=== PATIENT | male | born 1965 | race Caucasian/White ===

== ENCOUNTER 2017-10-28 12:03 | Emergency (ER) | payer BC, SELFPAY ==
[2017-10-28 12:06] VITALS: BP 117/72; PULSE 75; RESP 18; TEMP 36.4; O2SAT 98; BMI 31.4
[2017-10-28] MEDS: 0.9% Normal Saline 1,000 ML 1000 ML IV (12:55)
[2017-10-28 13:07] LABS: Absolute Lymphocyte Count 1.35 X10^3/ul (0.83-4.51); Absolute Neutrophil Count 3.4 X10^3/uL (2.0-7.7); Basophil# 0.03 X10^3/uL; Basophil% 0.6 % (0-1); Eosinophil# 0.19 X10^3/uL; Eosinophils% 3.5 % (0-5); Hematocrit 39.2 % (40-54); Hemoglobin 13.4 g/dl (13.0-16.5); Lymphocyte # 1.35 X10^3/ul (4.0); Lymphocyte % 25.2 % (19-41); Mean Corp Hgb Conc 34.2 g/gl (32-36); Mean Corpuscular Hgb 28.8 pg (27.0-32.0); Mean Corpuscular Volume 84.1 fL (80-94); Monocyte# 0.42 X10^3/uL; Monocyte% 7.8 % (0-10); Neutrophil # 3.36 X10^3/uL (2.7-7.7); Neutrophil % 62.7 % (47-70); Platelet Count 130 K/mm3 (150-450); RBC Distribution Width CV 14.7 % (11.6-14.6); RBC Distribution Width SD 44.1 fl (35.1-43.9); Red Blood Count 4.66 M/mm3 (4.6-6.2); White Blood Count 5.4 K/mm3 (4.4-11.0)
[2017-10-28 13:10] LABS: POSITIVE COUNT NO; POSITIVE DIFFERENTIAL NO; POSITIVE MORPHOLOGY NO
[2017-10-28 13:18] LABS: Anion Gap 10 (5-15); BUN 12 mg/dL (7-18); BUN/Creat Ratio 12.9 RATIO (10-20); Calcium,Total 8.2 mg/dL (8.5-10.1); Chloride 105 mmol/L (98-107); Creatinine, Serum 0.93 mg/dL (0.70-1.30); EST Glomerular Filtration Rate 89 mL/min (>60); Est Glom Filt Rate - Afr Amer 108 mL/min (>60); Estimated Creatinine Clearance 96.71 ml/min; Glucose 145 mg/dL (74-106); Potassium 4.1 mmol/L (3.5-5.1); Sodium Level 137 mmol/L (136-145)
--- NOTE | 2017-10-28 16:18 | ED.VISSUMM ---
- ER Visit Summary Date of Service: 10/28/17 Chief Complaint: [Generalized weakness and diarrhea] History of Present Illness: The patient is a 52 M [resents to the emergency department with complaint of not feeling well for several days. Patient started 3 days ago with vomiting and diarrhea. Patient was having watery stools about every 2 hours. Patient states he took Imodium and really has not had any water stools today. Patient states that he feels like he might pass out and feels lightheaded at times. Patient believes he is dehydrated. Patient had fever 3 days ago up to 100.9. Patient states also that he had been on 2 antibiotics in the last 3 months for upper respiratory symptoms initially patient was on Augmentin followed by a Z-Emmett recently. Patient is a diabetic and has a history of hypertension and coronary artery disease.] Patient's had vomiting and diarrhea about 2 weeks ago. Physical Examination: [HEENT-PERRLA, EOMI. Cranial nerves II through XII grossly intact. TMs clear. Mucous membranes moist. No adenopathy. Cardiovascular-regular rate and rhythm without murmur or ectopy Lungs-clear to auscultation, chest wall stable without crepitus or subcu emphysema Abdomen-hyperactive bowel sounds, mild diffuse tenderness. There is no rebound, rigidity, or perineal signs. Extremities-intact ?4, normal range of motion, normal pulses, atraumatic] Test Results: [CBC with differential obtained showed a normal white blood cell count. Chemistries were unremarkable. C. difficile was negative. Enteric pathogens pending] Emergency Department Course and Treatment: [Patient received a liter normal same fluid bolus.] patient feels markedly improved after fluids. Treatment Plan: [Patient advised to continue with Imodium and push fluids.] Disposition: [Discharged to home in stable condition. Patient advised to return if fever, worsening abdominal pain, bloody stool, dehydration, or condition should worsen in any way.] Impression: [Gastroenteritis-suspect viral] This note was generated with [employer] dictation software. It may contain incorrect words, spelling, and punctuation that were not noted in review of the chart prior to signing ED Disposition - Plan for ED Patient: Chief Complaint: Diarrhea Referrals: Janice Rudd, BERTHA-C [Primary Care Provider] -
--- NOTE | 2017-10-28 16:21 | ED.DCSUM_ITS ---
- ER Visit Summary Date of Service: 10/28/17 Chief Complaint: [Generalized weakness and diarrhea] History of Present Illness: The patient is a 52 M [resents to the emergency department with complaint of not feeling well for several days. Patient started 3 days ago with vomiting and diarrhea. Patient was having watery stools about every 2 hours. Patient states he took Imodium and really has not had any water stools today. Patient states that he feels like he might pass out and feels lightheaded at times. Patient believes he is dehydrated. Patient had fever 3 days ago up to 100.9. Patient states also that he had been on 2 antibiotics in the last 3 months for upper respiratory symptoms initially patient was on Augmentin followed by a Z-Emmett recently. Patient is a diabetic and has a history of hypertension and coronary artery disease.] Patient's had vomiting and diarrhea about 2 weeks ago. Physical Examination: [HEENT-PERRLA, EOMI. Cranial nerves II through XII grossly intact. TMs clear. Mucous membranes moist. No adenopathy. Cardiovascular-regular rate and rhythm without murmur or ectopy Lungs-clear to auscultation, chest wall stable without crepitus or subcu emphysema Abdomen-hyperactive bowel sounds, mild diffuse tenderness. There is no rebound , rigidity, or perineal signs. Extremities-intact ?4, normal range of motion, normal pulses, atraumatic] Test Results: [CBC with differential obtained showed a normal white blood cell count. Chemistries were unremarkable. C. difficile was negative. Enteric pathogens pending] Emergency Department Course and Treatment: [Patient received a liter normal same fluid bolus.] patient feels markedly improved after fluids. Treatment Plan: [Patient advised to continue with Imodium and push fluids.] Disposition: [Discharged to home in stable condition. Patient advised to return if fever, worsening abdominal pain, bloody stool, dehydration, or condition should worsen in any way.] Impression: [Gastroenteritis-suspect viral] This note was generated with [employer] dictation software. It may contain incorrect words, spelling, and punctuation that were not noted in review of the chart prior to signing ED Disposition - Plan for ED Patient: Chief Complaint: Diarrhea Referrals: Janice Rudd, BERTHA-C [Primary Care Provider] -
--- NOTE | 2017-10-28 16:21 | ED.DEP ---
ED Disposition - Plan for ED Patient: Chief Complaint: Diarrhea Instructions: ED Gastroenteritis Report Pend Referrals: Janice Rudd, SHIPPING SPECIALIST-C [Primary Care Provider] - 3-5 Days
--- NOTE | 2017-10-28 16:22 | DCINST.ED_ITS ---
ED Disposition - Plan for ED Patient: Chief Complaint: Diarrhea Instructions: ED Gastroenteritis Report Pend Referrals: Janice Rudd, LICENSED EMBALMER SUPERVISOR-C [Primary Care Provider] - 3-5 Days
[2017-10-28 16:33] VITALS: BP 117/72; PULSE 74; RESP 16; O2SAT 97
== END 2017-10-28 16:42 | disposition home or self-care (01) ==
LOC: ED 13:37
PROVIDERS: Emergency Provider Emergency Medicine; Family Provider Nurse Practitioner Family; PCP Nurse Practitioner Family
DX: A08.4 Viral intestinal infection, unspecified (principal); I25.10 Atherosclerotic heart disease of native coronary artery without angina pectoris; E11.9 Type 2 diabetes mellitus without complications; I10 Essential (primary) hypertension; E78.00 Pure hypercholesterolemia, unspecified; Z95.1 Presence of aortocoronary bypass graft; Z79.4 Long term (current) use of insulin; Z79.84 Long term (current) use of oral hypoglycemic drugs; Z79.899 Other long term (current) drug therapy
CPT/HCPCS: 80048; 85025; 87493; 87506; 96360; 99283; J7030

== ENCOUNTER → 2019-10-08 15:00 | Outpatient (CLI) | payer OTHER, SELFPAY ==
[2019-10-07 10:59] VITALS: BMI 32.3
[2019-10-08 08:50] VITALS: BMI 32.3
--- NOTE | 2019-10-08 15:01 | ECHOD_ITS ---
Reason For Study: CHEST PAIN, DIZZINESS Procedure This was a 2D Doppler, Color Flow transthoracic echocardiogram. Exam performed in department. Left Ventricle Normal LV size. The estimated ejection fraction is 50-55 %. No evidence for diastolic dysfunction. No regional wall motion abnormalities noted. Right Ventricle Normal RV size. Normal systolic function. Atria The left atrium is mildly enlarged. Normal right atrium. Normal atrial septum. Mitral Valve There is no mitral valve stenosis. Trivial mitral valve insufficiency. Tricuspid Valve There is no tricuspid stenosis. Trivial tricuspid valve insufficiency. Unable to estimate RV systolic pressure due to insufficient tricuspid regurgitant envelope. Aortic Valve Trisinus/trileaflet aortic valve. There is no aortic stenosis. No aortic valve insufficiency. Pulmonic Valve There is no pulmonic valvular stenosis. No pulmonic valve insufficiency. Great Vessels Normal aortic root. Pericardium/Pleural No pericardial effusion. MMode/2D Measurements & Calculations LVIDd: 5.3 cm IVSd: 0.95 cm Ao root diam: 3.6 cm LVIDs: 3.6 cm LVPWd: 1.1 cm RVDd: 3.4 cm FS: 32.3 % LAV(MOD-bp): 48.5 ml LA A4 area: 16.9 cm2 LA dimension(2D): 4.2 cm LAV(MOD-bp) Indexed: 21.6 ml/m2 LAV(MOD-sp2): 48.9 ml LAV(MOD-sp4): 46.7 ml RA A4 area: 12.7 cm2 Time Measurements MV dec time: 0.16 sec Doppler Measurements & Calculations MV E max silas: 115.8 cm/sec Lat Peak E' Silas: 12.8 cm/sec Med Peak E' Silas: 6.3 cm/sec MV A max silas: 63.1 cm/sec E/E' lat: 9.1 E/E' med: 18.4 MV E/A: 1.8 Ao V2 max: 111.0 cm/sec LV V1 max: 98.5 cm/sec PA V2 max: 161.5 cm/sec Ao max P.9 mmHg LV V1 max P.9 mmHg Interpretation Summary The estimated ejection fraction is 50-55 %. No evidence for diastolic dysfunction. The left atrium is mildly enlarged. Trivial mitral valve insufficiency. Ordering Physician: Miryea Delacruz Referring Physician: Janice Rudd Performed By: Lea Barnes, DERIK, RVT
--- NOTE | 2019-10-08 15:45 | RAD_ITS ---
STUDY: X-RAY CHEST REASON FOR EXAM: Male, 54 years old. HAVING HEART CATH TOMORROW TECHNIQUE: PA and lateral views of the chest. COMPARISON: None. FINDINGS: There is a calcified granuloma in the right midlung zone. There is no demonstrated pleural abnormality. Sternal cerclage wires are present from a prior sternotomy. There are calcified mediastinal lymph nodes. Normal visualized pulmonary arteries. Normal visualized aortic arch and descending thoracic aorta. There are diffuse degenerative changes of the visualized thoracic spine. Normal visualized ribs, clavicles, and shoulders. There is no demonstrated abnormality of the visualized soft tissue structures of the upper abdomen. RAD/Chest PA and Lateral IMPRESSION: Status post sternotomy. Calcified granuloma right midlung zone. No visualized acute focal infiltrate. Electronically Signed: Maida De MD at 18:00 EST Tel , Service support ,
== END ==
PROVIDERS: PCP Nurse Practitioner Family; Referring Provider Specialist; Visit Provider Specialist
DX: I25.10 Atherosclerotic heart disease of native coronary artery without angina pectoris (principal); E78.5 Hyperlipidemia, unspecified; I10 Essential (primary) hypertension; Z95.1 Presence of aortocoronary bypass graft; Z95.5 Presence of coronary angioplasty implant and graft; R06.02 Shortness of breath; R07.9 Chest pain, unspecified
CPT/HCPCS: 71046; 93306

== ENCOUNTER 2019-10-09 08:57 | Day surgery (SDC) | payer OTHER, SELFPAY ==
[2019-10-07 10:59] VITALS: BMI 32.3
[2019-10-07 13:48] LABS: Absolute Lymphocyte Count 0.89 X10^3/uL (0.83-4.51); Absolute Neutrophil Count 5.4 X10^3/uL (2.0-7.7); Basophil# 0.03 X10^3/uL; Basophil% 0.4 % (0-1); Eosinophil# 0.17 X10^3/uL; Eosinophils% 2.4 % (0-5); Hematocrit 40.6 % (40-54); Hemoglobin 13.6 g/dL (13.0-16.5); Lymphocyte # 0.89 X10^3/ul (4.0); Lymphocyte % 12.8 % (19-41); Mean Corp Hgb Conc 33.5 g/dL (32-36); Mean Corpuscular Hgb 29.7 pg (27.0-32.0); Mean Corpuscular Volume 88.6 fL (80-94); Mean Platelet Vol. 9.5 fl (6.2-12.0); Monocyte# 0.43 X10^3/uL; Monocyte% 6.2 % (0-10); NRBC Flagged by Analyzer 0 % (0-5); Neutrophil % 77.3 % (47-70); Platelet Count 149 K/mm3 (150-450); RBC Distribution Width CV 13.7 % (11.6-14.6); RBC Distribution Width SD 44.3 fl (35.1-43.9); Red Blood Count 4.58 M/mm3 (4.6-6.2)
[2019-10-07 13:59] LABS: International Normalized Ratio 1.1; Partial Thromboplast Time 29.9 Seconds (24.1-36.2); Prothrombin Time (Protime)PT. 14.1 SECONDS (11.7-14.9)
[2019-10-07 14:12] LABS: Anion Gap 7 (5-15); BUN 16 mg/dL (7-18); Calcium,Total 9.3 mg/dL (8.5-10.1); Chloride 107 mmol/L (98-107); Creatinine, Serum 1.07 mg/dL (0.70-1.30); EST Glomerular Filtration Rate 76 mL/min (>60); Est Glom Filt Rate - Afr Amer 92 mL/min (>60); Glucose 132 mg/dL (74-106); Potassium 4.6 mmol/L (3.5-5.1); Sodium Level 137 mmol/L (136-145)
[2019-10-08 08:50] VITALS: BMI 32.3
[2019-10-09] VITALS (25 sets, daily range): BP systolic 99–134; BP diastolic 55–93; PULSE 55–74; RESP 10–21; TEMP 36.6–37.1; O2SAT 95–100; BMI 31.6; BMI 32.3
--- NOTE | 2019-10-09 11:30 | EKG12_ITS ---
Test Reason : AM EKG Blood Pressure : / mmHG Vent. Rate : 064 BPM Atrial Rate : 064 BPM P-R Int : 142 ms QRS Dur : 092 ms QT Int : 410 ms P-R-T Axes : 072 109 116 degrees QTc Int : 422 ms Normal sinus rhythm Nonspecific ST and T wave abnormality Prominent R Wave in V1: consider lead placement, normal variant, early transition; posterior OH of un determined age Abnormal ECG Confirmed by SUDEEP BOLAÑOS, AMY ([id number]), news video editor RAGHAV ESPINOSA ([id number]) on 10/14/2019 2:00:49 PM Referred By: Mireya Delacruz Confirmed By:AMY SHEETS MD
--- NOTE | 2019-10-09 11:37 | DCINST_ITS ---
Discharge Diet: Low fat/ Low Cholesterol Discharge Activity: Return to Normal Activity Return to work on:: 10/26/19 May shower in (days): 1 Lifting Restrictions: 10 pounds and also avoid any pushing or pulling for 3 days after your test. Call your doctor if your incision/area has: Continuous Slow Oozing, Sudden Increased Bleeding, Increased Pain/ Swelling, Increased Redness, Foul Smelling Discharge, Swelling at the incision site Call your doctor if you observe: Fever of 101 or Higher, Shortness of breath, Chest pain Remove Dressing in (days):: 1 Additional Instructions: You will need to stay on your Brilinta for at least one year prior to stopping this for any reason. The purpose of this is to keep your stent open. If someone asks you to stop this you need to call the [facility] to ask if this is okay. Please keep your follow up with the [facility]. If you need to change this appt please call us to reschedule. We would like for you to participate in cardiac rehab. We can further discuss this at you office visit. There are several medications at are important for cardiac health. Below is a list of several medication classifactions, if you are on them and how much. If you are not on them the reason why. Aspirin at discharge? Yes. Aspirin 81 mg daily. This is an antiplatelet. Antiplatelet therapy at discharge? Brilinta at 90 mg twice a day.This is also an antiplatelet. TONY/ARB at discharge? Lisinopril 20 mg daily. This is for blood pressure. Statin at discharge? Atorvastatin 40 mg daily. This is for cholesterol. Beta-scotty at discharge? Carvedilol 6.25 mg twice a day. This helps to control your heart rate. Allergies/Adverse Reactions: Allergies No Known Allergies Allergy (Verified 10/07/19 11:05) Medications to take at Discharge Amlodipine [Norvasc] 10 mg PO DAILY 10/28/17 Atorvastatin Calcium 40 mg PO QHS 10/28/17 Insulin NPH/Reg 70/30 [Novolin 70/30] 40 units SUBCUT BID 10/28/17 Pantoprazole Sodium [Protonix] 40 mg PO DAILY 10/28/17 albuterol sulfate 90 mcg/actuation aerosol inhaler 2 puff INHALATION Q6H PRN 10/02/19 aspirin 81 mg tablet,delayed release 162 mg PO DAILY tab 10/02/19 carvedilol 6.25 mg tablet 6.25 mg PO BID 10/02/19 coenzyme Q10 200 mg capsule 200 mg PO DAILY 10/02/19 metformin 1,000 mg 24 hr tablet,extended release 1,000 mg PO BID 10/02/19 multivitamin 1 tab PO DAILY 10/02/19 nitroglycerin 0.4 mg sublingual tablet 0.4 mg SUBLINGUAL Q5-15M PRN 10/02/19 budesonide-formoterol HFA 160 mcg-4.5 mcg/actuation aerosol inhaler 1 puff INHALATION BID g 10/07/19 cholecalciferol (vitamin D3) 4,000 unit tablet 4,000 unit PO DAILY 10/07/19 cyanocobalamin (vitamin B-12) 500 mcg tablet 500 mcg PO DAILY 10/07/19 lidocaine HCl 4 % topical cream 1 applic TOPICAL BID PRN 10/07/19 lisinopril 20 mg tablet 20 mg PO DAILY 10/07/19 melatonin 3 mg capsule 9 mg PO HS PRN cap 10/07/19 naproxen 250 mg tablet 250 mg PO BID PRN 10/07/19 prazosin 1 mg capsule 3 mg PO QHS cap 10/07/19 sertraline 100 mg tablet 200 mg PO DAILY tab 10/07/19 Ticagrelor [Brilinta] 90 mg PO BID #60 tab 10/09/19 The following prescriptions were given: Ticagrelor [Brilinta] 90 mg PO BID #60 tab Transmission Status: Pending to [facility] [place] Primary Care Physician: Janice Rudd, BERTHA-C [Primary Care Provider] - Please follow up with your Primary Care Physician in: 2-4 weeks Test Results: Test results from this visit will be discussed in further detail at your follow- up appointment, if applicable. Please Follow Up With: Mireya Delacruz MD When: 10/27/2019 at 3 pm Cardiac Rehabilitation Info Cardiac Rehabilitation Program Information: Cardiac Rehabilitation is important for patients like you who are recovering from a heart problem. Cardiac rehabilitation programs are recognized as integral to the continued care of the patient with coronary heart disease. The cardiac rehabilitation program is designed to optimize a patient's physical, psychological, and social functioning. Health home care assistant work in cardiac rehabilitation programs and assist you with getting the treatments you need to get stronger and healthier - like exercise, healthy eating habits, and medications. Cardiac rehabilitation has been show to help people with heart problems live longer and have better life enjoyment than people who do not go to cardiac rehabilitation. Please contact the Cardiac Rehabilitation Program at [facility] at in two weeks if you have not heard from them.
[2019-10-09] MEDS: Albuterol 2.5 MG/3 ML VIAL.NEB. INHALATION ×2 (13:14→18:51)
[2019-10-09 13:38] LABS: Hematocrit 36.4 % (40-54); Hemoglobin 12.5 g/dL (13.0-16.5); Mean Corp Hgb Conc 34.3 g/dL (32-36); Mean Corpuscular Hgb 30.3 pg (27.0-32.0); Mean Corpuscular Volume 88.1 fL (80-94); Mean Platelet Vol. 9.6 fl (6.2-12.0); Platelet Count 109 K/mm3 (150-450); RBC Distribution Width CV 13.8 % (11.6-14.6); RBC Distribution Width SD 44.6 fl (35.1-43.9); Red Blood Count 4.13 M/mm3 (4.6-6.2); White Blood Count 5.1 K/mm3 (4.4-11.0)
--- NOTE | 2019-10-09 13:44 | CRPHASE1 ---
Patient Communication PHII Cardiac Rehab Discussed with Patient:: Yes Guide to Cardiac Rehab Given to Patient:: Yes Cardiac Rehab Facility Choice List Given to Patient:: Yes - pt chooses [facility] Choice Program [facility] CR PHII:: Communication Given to CR, Refer to [facility] Crown Ceramist:: Mireya Delacruz Phase II Cardiac Rehab:: Yes Sessions:: 36 sessions - 3 days/wk, 12 weeks Risk Factors/Lifestyle Hx Hypertension: Yes Hx Dyslipidemia: Yes Hx Obesity: Yes Height: 5 ft 11 in Weight:: 105.233 kg BMI: 32.3 Family History: Family History (Last Reviewed 10/07/19 @ 16:[address] Mireya Delacruz MD) Mother Hypertension Diabetes CAD (coronary artery disease) Father Heart disease Hypertension Diabetes Phase I Education Given On:: [place], Nutrition, Antiplatelet medication, CHF, Smoking cessation, Diabetes - Type I, Diabetes - Type II Knowledge of Condition:: Yes Hospital Course Cardiac Cath Date:: 10/09/19 Medical/Surgical History SC:: Yes COPD:: Yes Dyslipidemia:: Yes CABG: Yes PTCA:: Yes Cardiac Rehabilitation Info Cardiac Rehabilitation Program Information: Cardiac Rehabilitation is important for patients like you who are recovering from a heart problem. Cardiac rehabilitation programs are recognized as integral to the continued care of the patient with coronary heart disease. The cardiac rehabilitation program is designed to optimize a patient's physical, psychological, and social functioning. Health certified social workers in health care work in cardiac rehabilitation programs and assist you with getting the treatments you need to get stronger and healthier - like exercise, healthy eating habits, and medications. Cardiac rehabilitation has been show to help people with heart problems live longer and have better life enjoyment than people who do not go to cardiac rehabilitation. Please contact the Cardiac Rehabilitation Program at [facility] at in two weeks if you have not heard from them.
--- NOTE | 2019-10-09 13:47 | CRPH1.INSTRU ---
General Education CAD and cardiac anatomy and function:: Patient communicates acknowledgment Explanation of diagnoses and procedures:: Patient communicates acknowledgment Sign/Symptoms of AR:: Patient communicates acknowledgment Antiplatelet therapy: Patient communicates acknowledgment Proper use of NTG-SL: Not instructed Emergency procedures and activation of EMS: Patient communicates acknowledgment Compliance of all prescribed medications: Patient communicates acknowledgment Smoking Nicotine/Smoking Response Code:: Patient communicates acknowledgment Dyslipidemia Dyslipidemia Response Code:: Patient communicates acknowledgment Overweight/Obesity Patient Overweight/Obesity Risk Factors Are:: Obesity - > or = 30 Overweight/Obesity:: Patient communicates acknowledgment Hypertension Hypertension:: Patient communicates acknowledgment Heart Disease Heart Disease Response Code:: Patient communicates acknowledgment Diabetes Diabetes:: Patient communicates acknowledgment Metabolic Syndrome Metabolic Syndrome Response Code:: Patient communicates acknowledgment Sedentary Sedentary Response Code:: Patient communicates acknowledgment Stress Stress Response Code:: Patient communicates acknowledgment
--- NOTE | 2019-10-09 14:43 | CASEMGMT ---
RN CM Note. Intro role of CM to patient. Pt states he is independent, no use of DME. Plans to return home on dc with family support. Brilinta card explained to patient and he will take to his pharmacy on dc. No dc concerns identified at this time. DC PLAN: Home on dc. Brilinta card given to pt. Papo OLVERA RN ACM
[2019-10-09 17:11] LABS: Bedside Glucose 186 mg/dL (70-110)
[2019-10-09] MEDS: Insulin Human 75/25 Kwickpen 40 UNIT SC (17:51)
[2019-10-09] MEDS: Budesonide Respules 0.5 MG/2 ML AMPUL.NEB. INHALATION (18:51)
--- NOTE | 2019-10-09 19:41 | CL.I_ITS ---
Patient Name: LYNDA GORDILLO Study Date: 10/09/2019 Performing: Royal Delacruz MD Ht: 71 inches 180 cm : 1965 Wt: 231.8 lbs 105 kg Age: 54 Gender: male BSA: 2.24 PROCEDURE(S) PERFORMED MW98-MHD/COR/LV/CABG HS39-MVH W OR WO PTCA, SINGLE CORONARY ARTERY DC11-AO ROOT ANGIO WITH HEART CATH CLINICAL PROFILE AND CO-MORBIDITIES Indications: New Onset Angina <= 2 months Heart Failure: None Stress/Imaging Stress/Image Study Performed: No CAD Presentations: Unstable angina. CONCLUSIONS CAD as described. Patent 1/4 bypass grafts. EF 50%. No significant , AR or MR. Successful PCI of RP DA with MANDY RECOMMENDATIONS Risk factor modification ASA Indefinitley Brilinta for at least 12 months Follow up with primary live study manager DESCRIPTION OF PROCEDURE The patient arrived to the procedure lab. The risks and benefits of the procedure as well as a full d escription of our services here and lack of surgical backup were fully explained to the patient and/o r their significant other prior to the catheterization. The Timeout was completed, verifying the raphael ect patient and procedure. The patient's procedural site was prepped and draped in the usual fashion. Local anesthetic was given subcutaneously to right groin region with Lidocaine 2%. Using a modified Seldinger technique, arterial access was obtained via the right femoral artery, a 5Fr sheath was inse rted.. Left Coronary Artery selective angiography was performed in multiple views using a 5 Fr. JL4 catheter. Left Ventriculography was performed in SALVADOR projection using a 5 Fr. JR4. LV to AO pullback pressures were then recorded. Right Coronary Artery selective angiography was then performed in multi ple views using a 5 Fr. JR 4 catheter. Right Radial artery sequential graft to the OM 1 and Diag selective angiography was performed in multiple views using a 5 Fr. JR 4 catheter - occluded . Left internal mammary artery graft to the LAD selective angiography was performed in multiple views using a 5 Fr. JR 4 catheter. Ascending (root) aorta selective angiography was then performed in sing le view with 5F pigtail. Ascending (root) aorta selective angiography was then performed in single vi ew with 5F pigtailThe images were reviewed and options discussed. A decision was then made to proceed with an Intervention, IVUS or other adjunct procedure. Arterial sheath was exchanged for a 6 Fr Sheath. JR4 Guide catheter was inserted and engaged into the RCA. Guide wire was advanced to the Right PDA. 2x12 emerge Balloon catheter was inserted. Angiog charlee performed pre balloon dilatation. PTCA balloon inflated at 12 atms for 17 secs. PTCA balloon infl ated at 12 atms for 16 secs. PTCA balloon inflated at 12 atms for 11 secs. PTCA balloon inflated at 1 2 atms for 8 secs. Angiogram performed post balloon dilatation. 2.5x32 synergy Drug Eluting stent was inserted. Drug Eluting stent was removed intact, failed to cross lesion 2.5x20 emerge Balloon cathet er was inserted. PTCA balloon inflated at 10 atms for 39 secs. PTCA balloon inflated at 10 atms for 4 1 secs. 2.5x20 NC Emerge Balloon catheter was inserted. PTCA balloon inflated at 16 atms for 22 secs. 2.5x32 Synergy Drug Eluting stent was inserted. Angiogram performed post stent deployment. Contrast was injected through the sheath and the Right Iliac and Femoral artery were assessed for possible closure device. The arterial sheath was pulled and a Perclose closure device was deployed f or hemostasis CORONARY ANGIOGRAPHY DOMINANCE: Right Dominant LEFT HEART ASSESSMENT Left Ventricular Ejection Fraction: by LV Gram 50 % Normal LV wall motion LEFT MAIN: Mild luminal irregularities LEFT ANTERIOR DESCENDING ARTERY: MID LAD: 100 % Stenosis CIRCUMFLEX ARTERY: Mild luminal irregularities OM 1: Proximal - Instent restenosis 100 % RIGHT CORONARY ARTERY: moderate diffuse disease. There appears to be a stent in the distal RCA which has about 40-50% instent restenosis RT PDA: Proximal - 99 % Stenosis GRAFTS: ELAM graft to the LAD is patent Radial graft to the RPDA is totally occluded Radial graft to the 1st Diagonal sequenced to OM1 is totally occluded VALVE FINDINGS: No Aortic Valve insufficiency No Aortic Valve Stenosis No Mitral Insufficency AORTIC ROOT: normal dimensions. No patent grafts seen INTERVENTION INFORMATION LESION SITE: RT PDA (Proximal) Lesion Complexity: High/C, chronic total occlusion: No, lesion at bifurcation: Yes, thrombus present: No, lesion length: 29 mm, culprit lesion: Yes, Previously treated lesion: No Pre Stenosis: 99 % Pre intervention ZOLTAN flow: 1 PROCEDURE: Drug Eluting Stent with pre dilatation. Post Stenosis: 0 % Post intervention ZOLTAN flow: 3 Lesion Devices: Rivers .014 [employer] [place] 190cm Cardinal 6 Fr JR4 100cm Guide Catheter Rafa Sci EMERGE MR 2.00x12 BALLOON Rafa Sci Synergy MR MANDY 2.50x32 Rafa Sci NC EMERGE MR 2.50x20 BALLOON Rafa Sci EMERGE MR 2.50x20 BALLOON COMPLICATIONS No Complications PROCEDURE MEDICATIONS Versed 1 mg IV Fentanyl 50 mcg IV Oxygen: 2 L/min via nasal cannula Brilinta 180 mg PO @ 10/09/2019 10:59:45 Heparin 7000 unit(s) IV 10/09/2019 10:32:04 SUMMARY OF HEMODYNAMIC DATA Time AIR REST ECG 09:17:46 AO 109/-6 (70) SA 10:13:36 LV 105/-12, 18 10:13:51 LVp 99/-5, 16 10:14:28 AOp 93/52 (68) 10:14:33 Signed By Royal Delacruz MD On 10/09/2019 19:41:05 Royal Delacruz MD
[2019-10-09] MEDS: TICAGRELOR 90 MG TABLET PO (21:53)
[2019-10-09] MEDS: Atorvastatin Calcium 40 MG Tablet PO (21:54)
[2019-10-09] MEDS: Carvedilol 6.25 MG Tablet PO (21:55)
[2019-10-09] MEDS: Doxazosin 1 MG Tablet 2.5 MG PO (21:55)
[2019-10-09] MEDS: MELATONIN 3 MG TABLET 9 MG PO (22:00)
[2019-10-10] VITALS (14 sets, daily range): BP systolic 101–135; BP diastolic 47–94; PULSE 61–73; RESP 14–20; TEMP 36.3–36.7; O2SAT 94–97
[2019-10-10 05:07] LABS: Hematocrit 34.7 % (40-54); Hemoglobin 11.7 g/dL (13.0-16.5); Mean Corp Hgb Conc 33.7 g/dL (32-36); Mean Corpuscular Hgb 29.9 pg (27.0-32.0); Mean Corpuscular Volume 88.7 fL (80-94); Mean Platelet Vol. 9.5 fl (6.2-12.0); Platelet Count 113 K/mm3 (150-450); RBC Distribution Width CV 13.7 % (11.6-14.6); RBC Distribution Width SD 44.2 fl (35.1-43.9); Red Blood Count 3.91 M/mm3 (4.6-6.2)
[2019-10-10 05:21] LABS: AST(SGOT) 24 U/L (15-37); Alanine Aminotransfer ALT/SGPT 58 U/L (16-61); Albumin, Serum 3.4 g/dL (3.2-5.0); Alkaline Phosphatase 88 U/L (45-117); Anion Gap 8 (5-15); BUN 17 mg/dL (7-18); Chloride 106 mmol/L (98-107); Creatinine, Serum 1.21 mg/dL (0.70-1.30); EST Glomerular Filtration Rate 66 mL/min (>60); Est Glom Filt Rate - Afr Amer 80 mL/min (>60); Globulin 3.5 g/dL (2.2-4.2); Glucose 261 mg/dL (74-106); Potassium 4.2 mmol/L (3.5-5.1); Protein, Total 6.9 g/dL (6.4-8.2); Sodium Level 138 mmol/L (136-145)
[2019-10-10 05:22] LABS: Calcium,Total 8.6 mg/dL (8.5-10.1)
[2019-10-10] MEDS: Albuterol 2.5 MG/3 ML VIAL.NEB. INHALATION (06:30)
[2019-10-10] MEDS: Budesonide Respules 0.5 MG/2 ML AMPUL.NEB. INHALATION (06:30)
[2019-10-10] MEDS: Insulin Human 75/25 Kwickpen 40 UNIT SC (08:35)
[2019-10-10] MEDS: Sertraline 100 MG Tablet 200 MG PO (08:36)
[2019-10-10] MEDS: Pantoprazole Sodium 40 MG Tablet PO (08:36)
[2019-10-10] MEDS: TICAGRELOR 90 MG TABLET PO (08:37)
[2019-10-10] MEDS: Cyanocobalamin 500 MCG Tablet PO (08:37)
[2019-10-10] MEDS: Ascorbic Acid 500 MG Tablet PO (08:37)
[2019-10-10] MEDS: Aspirin E.C. 81 MG Tablet 162 MG PO (08:38)
[2019-10-10] MEDS: amLODIPine 10 MG Tablet PO (08:38)
[2019-10-10] MEDS: Multivitamins,Therapeutic Tablet 1 TABLET PO (08:39)
[2019-10-10] MEDS: Carvedilol 6.25 MG Tablet PO (08:40)
--- NOTE | 2019-10-10 10:00 | EKG12_ITS ---
Test Reason : POST PCI Blood Pressure : / mmHG Vent. Rate : 060 BPM Atrial Rate : 060 BPM P-R Int : 148 ms QRS Dur : 088 ms QT Int : 394 ms P-R-T Axes : 069 111 109 degrees QTc Int : 394 ms Normal sinus rhythm Nonspecific ST abnormality Abnormal ECG Confirmed by SUDEEP BOLAÑOS, AMY ([id number]), acquisitions editor RAGHAV ESPINOSA ([id number]) on 10/14/2019 2:01:30 PM Referred By: Mireya Delacruz Confirmed By:AMY SHEETS MD
[2019-10-10] MEDS: Lisinopril 20 MG Tablet PO (10:21)
[2019-10-10 10:26] LABS: Bedside Glucose 182 mg/dL (70-110)
[2019-10-10 12:25] LABS: Bedside Glucose 207 mg/dL (70-110)
== END 2019-10-10 12:50 | disposition home or self-care (01) ==
LOC: CLSP 08:57 → ICU 10-12 09:43
PROVIDERS: PCP Nurse Practitioner Family; Referring Provider Specialist; Visit Provider Specialist
DX: I25.110 Atherosclerotic heart disease of native coronary artery with unstable angina pectoris (principal); E78.5 Hyperlipidemia, unspecified; I10 Essential (primary) hypertension; I25.2 Old myocardial infarction; K21.9 Gastro-esophageal reflux disease without esophagitis; J44.9 Chronic obstructive pulmonary disease, unspecified; F43.10 Post-traumatic stress disorder, unspecified; E11.9 Type 2 diabetes mellitus without complications; F41.9 Anxiety disorder, unspecified; F32.9 Major depressive disorder, single episode, unspecified; Z95.1 Presence of aortocoronary bypass graft; Z79.4 Long term (current) use of insulin; Z79.84 Long term (current) use of oral hypoglycemic drugs; Z79.82 Long term (current) use of aspirin; Z79.899 Other long term (current) drug therapy
CPT/HCPCS: 36415; 80048; 80053; 82962; 85025; 85027; 85610; 85730; 92928; 93005; 93459; 93567; 94640; 99152; 99153; J7040; Q9967; C1725; C1760; C1769; C1874; C1887; C9600; J1327

== ENCOUNTER → 2020-02-01 12:31 | Outpatient (CLI) | payer OTHER, SELFPAY ==
[2019-10-09 13:46] VITALS: BMI 32.3
[2019-10-27 15:00] VITALS: BMI 32.3
[2020-02-01 12:48] LABS: Hematocrit 39.3 % (40-54); Hemoglobin 12.9 g/dL (13.0-16.5); Mean Corp Hgb Conc 32.8 g/dL (32-36); Mean Corpuscular Hgb 29.7 pg (27.0-32.0); Mean Corpuscular Volume 90.6 fL (80-94); Mean Platelet Vol. 9.2 fl (6.2-12.0); Platelet Count 143 K/mm3 (150-450); RBC Distribution Width CV 14.6 % (11.6-14.6); Red Blood Count 4.34 M/mm3 (4.6-6.2); White Blood Count 6.8 K/mm3 (4.4-11.0)
[2020-02-01 13:15] LABS: Anion Gap 5 (5-15); BUN 15 mg/dL (7-18); BUN/Creat Ratio 13.9 RATIO (10-20); Calcium,Total 9.4 mg/dL (8.5-10.1); Chloride 108 mmol/L (98-107); Creatinine, Serum 1.08 mg/dL (0.70-1.30); EST Glomerular Filtration Rate 75 mL/min (>60); Est Glom Filt Rate - Afr Amer 91 mL/min (>60); Glucose 204 mg/dL (74-106); Potassium 4.6 mmol/L (3.5-5.1); Sodium Level 138 mmol/L (136-145); T4 Total, Thyroxin 8.3 ug/dL (4.5-12.1); Thyroid Stim Hormone (TSH) 1.62 uIU/mL (0.358-3.74)
== END ==
PROVIDERS: PCP Nurse Practitioner Family; Referring Provider Nurse Practitioner Family; Visit Provider Nurse Practitioner Family
DX: I25.10 Atherosclerotic heart disease of native coronary artery without angina pectoris (principal); I25.2 Old myocardial infarction; R53.83 Other fatigue; Z95.1 Presence of aortocoronary bypass graft
CPT/HCPCS: 36415; 80048; 84436; 84443; 85027

== ENCOUNTER 2020-11-08 20:21 | Emergency (ER) | payer OTHER, SELFPAY ==
[2019-10-09 13:46] VITALS: BMI 32.3
[2020-07-13 17:49] VITALS: BMI 32.8
[2020-11-08 20:23] VITALS: BP 146/74; PULSE 77; RESP 18; TEMP 36.1; O2SAT 96; BMI 31.8
--- NOTE | 2020-11-08 20:56 | ED.VIS.CHEST ---
History of Present Illness Chief Complaint: Chest Other Informant: Patient Onset: Weeks - 3 Activity at onset: - - sudden when getting back adjusted by chiropractor Timing: Continuous Quality: Aching - sore Location: Right Chest Current Severity: Moderate Maximum Severity: Moderate Worsened By: Movement of Torso, Breathing Relieved By: Remaining Still Associated Symptoms: Negative for: Nausea, Vomiting, Diaphoresis, Dyspnea, Cough, Lightheadedness, Acid Reflux, Palpitations Narrative: Patient had been lying prone and getting his back adjusted by chiropractor, suddenly felt a pop in his anterior right lower rib cage followed by pain, he was told it was probably a muscle strain, but the pain has been persistent and without improvement for the past 3 weeks since it started. He denies any dyspnea or other symptoms. It radiates around the distribution of the affected ribs toward his armpit. - Past Medical History (1) Anxiety and depression Status: Chronic (2) Atherosclerosis of coronary artery of [place] heart without angina pectoris Status: Chronic (3) Essential hypertension Status: Chronic (4) GERD (gastroesophageal reflux disease) Status: Chronic (5) Hyperlipidemia Status: Chronic (6) Type 2 diabetes mellitus Status: Chronic Past Medical History - Allergies and Home Meds Allergies/Adverse Reactions: Allergies carrot Allergy (Severe, Verified 11/08/20 20:22) throat swelling desolving sutures Allergy (Mild, Uncoded 11/08/20 20:22) swelling Primary Care Physician: Corinne Vitale MD [Primary Care Provider] - Surgical History: coronary bypass surgery Smoking Status: Current every day smoker Review of Systems General: Denies: Chills, Fever, Sweats Eyes: Denies: Visual changes - bilaterally, Diplopia ENT: Denies: Rhinorrhea, Sore throat Cardiovascular: Reports: Chest pain - See HPI. Denies: Palpitations Respiratory: Denies: Dyspnea, Cough, Dyspnea on exertion Gastrointestinal: Denies: Abdominal pain, Nausea, Vomiting, Diarrhea, Melena, Hematochezia Genitourinary: Denies: Dysuria, Hematuria, Frequency Musculoskeletal: Denies: Back pain, Swelling, Extremity Pain Skin: Denies: Rash, Wounds Neurological: Denies: Headache, Weakness, Numbness Physical Exam Vital Signs/Narrative: Vital Signs Temp Pulse Resp BP Pulse Ox 11/08/20 20:23 97 F L 77 18 146/74 H 96 Inital Vital Signs reviewed: Yes General: Well nourished, Well developed, No Acute Distress Head: Normocephalic, Atraumatic Eyes: Perrl, EOMI ENT: Moist mucous membranes, No rhinorrhea Neck: Supple, Nontender Cardiovascular: Regular rate, Regular rhythm, No murmurs Respiratory: No distress, CTA bilaterally - Equal breath sounds present bilaterally, Chest tenderness - Tenderness reproducing his pain without subcutaneous emphysema or palpable step-off from the right parasternal area and ribs approximately 8-[address] to about the anterior axillary line, same ribs. No back or periscapular tenderness. Abdomen: Soft, Nontender, Nondistended, Normal bowel sounds Back: Nontender, Normal Inspection Extremities: Nontender, No edema Skin: Normal color, No rash, No Trauma Neurological: Alert, Oriented x3, Cranial nerves II-XII grossly intact, Normal Strength, Normal Sensation, Normal Gait Psychological: Normal affect, Normal Mood Diagnostic/Tx/Re-eval Clinical Impression(s) from Imaging Studies Ribs w/Chest X-Ray 11/08/20 21:14 IMPRESSION: No evidence of displaced rib fracture. Electronically Signed: Yobani Urbano MD at 21:30 EDT Tel , Service support , Treatment: Toradol IV - IM - Medical Decision Making On my interpretation 6 view x-rays of the right ribs including a PA chest is negative for anything acute, radiologist interpretation is in agreement. Differential here includes intercostal strain, minor nondisplaced rib fracture, rib subluxation, the x-rays are not showing anything such as a displaced fracture or pneumothorax. Patient is reassured and offered analgesics and advised to follow-up with his doctor, chiropractor may be able to help if it sublux, or maybe physical therapy. ED Disposition - Plan for ED Patient: Disposition: Home or Assisted Living Diagnosis: Rib pain on right side Instructions: ED Strain Chest Wall Prescriptions: traMADol [Ultram] 50 mg PO Q4H PRN PRN 2 Days #10 tablet PRN Reason: Pain Prescription Printed Referrals: Corinne Vitale MD [Primary Care Provider] - (Call for follow-up appointment)
[2020-11-08] MEDS: Ketorolac 30 MG/ML Syringe IM (21:04)
--- NOTE | 2020-11-08 21:14 | RAD_ITS ---
INDICATION: pain/injury EXAMINATION/TECHNIQUE: X-RAY - XR Ribs Unilateral W/ PA Chest Min 3 Views COMPARISON: None. FINDINGS: SOFT TISSUES: No soft tissue swelling or gas. BONES: No displaced fracture. No sclerotic or destructive changes observed. Median sternotomy wires present. VISUALIZED LUNGS: Calcified granuloma in the right midlung.. No pneumothorax. Multiple mediastinal clips. RAD/Ribs Uni Min 3V w/PA Chest IMPRESSION: No evidence of displaced rib fracture. Electronically Signed: Yobani Urbano MD at 21:30 EDT Tel , Service support ,
[2020-11-08 22:15] VITALS: BP 115/68; PULSE 73; RESP 16; TEMP 36.6; O2SAT 98
[2020-11-08] MEDS: traMADol 50 MG Tablet PO (22:16)
== END 2020-11-08 22:17 | disposition home or self-care (01) ==
PROVIDERS: Emergency Provider Emergency Medicine; PCP Internal Medicine
DX: R07.89 Other chest pain (principal); I10 Essential (primary) hypertension; I25.10 Atherosclerotic heart disease of native coronary artery without angina pectoris; K21.9 Gastro-esophageal reflux disease without esophagitis; E11.9 Type 2 diabetes mellitus without complications; E78.5 Hyperlipidemia, unspecified; F41.9 Anxiety disorder, unspecified; F32.9 Major depressive disorder, single episode, unspecified; Z95.1 Presence of aortocoronary bypass graft; Z79.4 Long term (current) use of insulin; Z79.82 Long term (current) use of aspirin; Z79.899 Other long term (current) drug therapy; F17.200 Nicotine dependence, unspecified, uncomplicated
CPT/HCPCS: 71101; 96372; 99283

== ENCOUNTER → 2021-01-19 16:58 | Outpatient (CLI) | payer OTHER, SELFPAY ==
[2019-10-09 13:46] VITALS: BMI 32.3
[2021-01-11 17:48] VITALS: BMI 32.6
[2021-01-19 17:13] LABS: Absolute Lymphocyte Count 1.87 X10^3/uL (0.83-4.51); Absolute Neutrophil Count 4.7 X10^3/uL (2.0-7.7); Basophil# 0.04 X10^3/uL; Basophil% 0.5 % (0-1); Eosinophil# 0.69 X10^3/uL; Eosinophils% 8.7 % (0-5); Lymphocyte # 1.87 X10^3/ul (0.83-4.51); Lymphocyte % 23.6 % (19-41); Mean Corp Hgb Conc 33.3 g/dL (32-36); Mean Corpuscular Hgb 29.3 pg (27.0-32.0); Mean Platelet Vol. 9.2 fl (6.2-12.0); Monocyte# 0.48 X10^3/uL; NRBC Flagged by Analyzer 0 % (0-5); Neutrophil % 59.2 % (47-70); Platelet Count 145 K/mm3 (150-450); RBC Distribution Width CV 14.2 % (11.6-14.6); RBC Distribution Width SD 44.8 fl (35.1-43.9); Red Blood Count 4.43 M/mm3 (4.6-6.2); White Blood Count 7.9 K/mm3 (4.4-11.0)
[2021-01-19 17:38] LABS: Hemoglobin A1c 7.3 % (3.8-5.6)
[2021-01-19 18:15] LABS: AST(SGOT) 20 U/L (15-37); Alanine Aminotransfer ALT/SGPT 57 U/L (16-61); Albumin, Serum 3.8 g/dL (3.2-5.0); Alkaline Phosphatase 112 U/L (45-117); Anion Gap 10 (5-15); BUN 18 mg/dL (7-18); BUN/Creat Ratio 16.1 RATIO (10-20); Calcium,Total 9.3 mg/dL (8.5-10.1); Chloride 101 mmol/L (98-107); Creatinine, Serum 1.12 mg/dL (0.70-1.30); EST Glomerular Filtration Rate 72 mL/min (>60); Est Glom Filt Rate - Afr Amer 87 mL/min (>60); Globulin 3.9 g/dL (2.2-4.2); Glucose 253 mg/dL (74-106); Potassium 4.1 mmol/L (3.5-5.1); Protein, Total 7.7 g/dL (6.4-8.2); Sodium Level 135 mmol/L (136-145); T4 Free Direct 0.87 ng/dL (0.76-1.46); Thyroid Stim Hormone (TSH) 1.75 uIU/mL (0.358-3.74)
== END ==
PROVIDERS: PCP Internal Medicine; Visit Provider Internal Medicine
DX: E11.9 Type 2 diabetes mellitus without complications (principal); Z13.29 Encounter for screening for other suspected endocrine disorder
CPT/HCPCS: 36415; 80053; 83036; 84439; 84443; 85025

== ENCOUNTER 2021-07-02 21:07 | Emergency (ER) | payer OTHER, SELFPAY ==
[2019-10-09 13:46] VITALS: BMI 32.3
[2021-07-02 21:08] VITALS: BP 136/79; PULSE 72; RESP 18; TEMP 36.9; O2SAT 98; BMI 31.9
--- NOTE | 2021-07-02 21:21 | EDS_ITS ---
HPI History of Present Illness Chief Complaint: General Illness Informant: patient Onset/Context/Timing Onset: Today Current Severity: Mild Maximum Severity: Mild Narrative Narrative: 56-year-old male extensive past medical history of CAD, diabetes, CABG, stents and a prior TIA. States he had URI symptoms 2 weeks ago had a negative Covid test at that time. He has felt much better and it all resolved in the last several days. Today he had similar symptoms like she feels worse with a temperature 99.7. He was vaccinated against Covid around November. He denies diarrhea he has had nausea and vomiting x1 today. He has had a runny nose and a headache. Temperature was 99.7 at home. He has also had a flu vaccination. Prior similar symptoms: Yes Recent Illness/Hospitalization: No PFSH PFSH Medical History Anxiety and depression Asthma Atherosclerosis of coronary artery of [place] heart without angina pectoris Carpal tunnel syndrome COPD (chronic obstructive pulmonary disease) Essential hypertension Fatigue GERD (gastroesophageal reflux disease) Headache, migraine History of [place] (myocardial infarction) History of stroke Hyperlipidemia Neuropathy Obesity AVINASH (obstructive sleep apnea) PTSD (post-traumatic stress disorder) Screening for thyroid disorder Seasonal allergies Type 2 diabetes mellitus without complication Home Medications amlodipine 10 mg PO DAILY 10/28/17 [History Last Taken 10/09/19] atorvastatin 40 mg PO QHS 10/28/17 [History Last Taken Unknown] insulin NPH and regular human 40 units SUBCUT BID 10/28/17 [History Last Taken Unknown] pantoprazole 40 mg PO DAILY 10/28/17 [History Last Taken 10/09/19] albuterol sulfate 90 mcg/actuation aerosol inhaler 2 puff INHALATION Q6H PRN 10/02/19 [History Last Taken Unknown] carvedilol 6.25 mg tablet 6.25 mg PO BID 10/02/19 [History Last Taken 10/09/19] coenzyme Q10 200 mg capsule 200 mg PO DAILY 10/02/19 [History Last Taken Unknown] metformin 1,000 mg 24 hr tablet,extended release 1,000 mg PO BID 10/02/19 [History Last Taken 10/08/19] multivitamin 1 tab PO DAILY 10/02/19 [History Last Taken Unknown] budesonide-formoterol HFA 160 mcg-4.5 mcg/actuation aerosol inhaler 1 puff INHALATION BID g 10/07/19 [History Last Taken Unknown] lisinopril 20 mg tablet 20 mg PO DAILY 10/07/19 [History Last Taken 10/09/19] melatonin 3 mg capsule 9 mg PO HS PRN cap 10/07/19 [History Last Taken Unknown] prazosin 1 mg capsule 3 mg PO QHS cap 10/07/19 [History Last Taken Unknown] sertraline 100 mg tablet 200 mg PO DAILY tab 10/07/19 [History Last Taken 10/09/19] aspirin 81 mg chewable tablet 81 mg PO DAILY #30 tab 10/27/19 [Rx Last Taken Unknown] cetirizine 10 mg tablet 10 mg PO DAILY tab 07/13/20 [History Last Taken Unknown] hydroxyzine pamoate 25 mg capsule 25 mg PO TID PRN 07/13/20 [History Last Taken Unknown] insulin syringe-needle U-100 1 mL 31 gauge x 5/16 #10 ea 07/13/20 [History Last Taken Unknown] nitroglycerin 0.4 mg sublingual tablet 0.4 mg SUBLINGUAL Q5-15M PRN #60 tab 07/13/20 [Rx Last Taken Unknown] sildenafil 100 mg tablet 100 mg PO DAILY PRN 07/13/20 [History Last Taken Unknown] cholecalciferol (vitamin D3) 50 mcg (2,000 unit) capsule 50 mcg PO DAILY 01/11/21 [History Last Taken Unknown] dulaglutide 0.75 mg/0.5 mL subcutaneous pen injector 0.75 mg SUBCUT QWEEK #2 ml 01/11/21 [Rx Last Taken Unknown] dexamethasone [Decadron] 6 mg PO DAILY 7 Days #7 tab 07/02/21 [Rx Last Taken Unknown] Allergy/AdvReac Type Severity Reaction Status Date / Time carrot Allergy Severe throat Verified 07/02/21 21:08 swelling desolving sutures Allergy Mild swelling Uncoded 07/02/21 21:08 Family History Mother Hypertension Diabetes CAD (coronary artery disease) CABG Father Heart disease Valve replacement Hypertension Diabetes Surgical History History of arthroscopic knee surgery History of coronary artery bypass graft History of coronary artery stent placement History of left heart catheterization History of open reduction and internal fixation (ORIF) procedure Social History Smoking Status: Current every day smoker tobacco type: cigarettes alcohol intake: current alcohol intake frequency: a few times a week Alcohol type: beer and hard liquor substance use type: does not use caffeine: Yes Type: coffee Number of servings: 1 what type of physical activity do you participate in: none ROS ROS ED ROS Narrative Cough, rhinorrhea, headache. Review of Systems ROS Unobtainable: Denies due to encephalopathy Constitutional Constitutional ED: Reports chills; Denies fever(s) Eyes Eyes: Denies change in vision ENT ENT ED: Reports rhinorrhea; Denies ear pain Cardiovascular Cardiovascular: Denies chest pain Respiratory/Chest Respiratory/Chest: Reports cough; Denies dyspnea Gastrointestinal Gastrointestinal: Reports nausea and vomiting; Denies abdominal pain or diarrhea Genitourinary Genitourinary ED: Denies dysuria Musculoskeletal Musculoskeletal: Reports myalgias Integumentary Denies rash Neurologic Neurologic: Reports headache(s) Psychiatric Psychiatric: Denies depression Endocrine Endocrinology: Denies polyuria Allergic/Immunologic Allergic/Immunologic ED: Denies urticaria EXAM Physical Exam Narrative Exam Narrative: 28-year-old male no acute distress vital signs stable afebrile. Pulse ox 90% on room air no signs hypoxia. He does not look septic nor toxic. HEENT exam unremarkable. Posterior pharynx normal. Neck nontender no lymphadenopathy. Lungs clear to auscultation bilaterally. Dry cough. No rales, rhonchi or wheezing. Equal symmetrical. Heart regular rhythm no murmur rate about 70. Abdomen soft nontender. Moving all 4 extremities. Neurologic exam unremarkable. Const Vital Signs: 07/02/21 21:08 Temperature 98.5 F Temperature Source Temporal Pulse Rate 72 Respiratory Rate 18 Blood Pressure 136/79 H Blood Pressure Mean 98 Pulse Ox 98 Oxygen Delivery Method Room Air Positive well nourished and well developed; Negative for cachectic, contractures or unkempt General Appearance ED: well developed and NAD; Negative for unkempt, cachectic, contractures, cyanotic or diaphoretic Nutritional Appearance: Negative for cachectic HEENT Reports moist mucous membranes Negative for trauma or tenderness Eyes PERRL and EOMs intact bilaterally Neck no lymphadenopathy, supple and no JVD General: Negative for tenderness Chest Wall inspection of chest normal and palpation of chest normal Resp normal respiratory effort and clear to auscultation bilaterally Auscultation: Negative for rales, rhonchi or wheezes GI normal to inspection, nondistended, normoactive bowel sounds, non-tender, non- distended and no masses Auscultation: normoactive bowel sounds Palpation: soft; Negative for tender, guarding or rebound tenderness present Back/Spine no CVA tenderness Extremity normal to inspection General Extremety ED: Negative for edema or tenderness General Extremity: Negative for edema Neuro oriented x3 Sensorium / Orientation: alert; Negative for orientation impaired, lethargic or stuporous Motor Exam: strength 5/5 throughout Psych mental status grossly normal Appearance: Negative for unkempt Mood & Affect: Negative for depressed or tearful Skin no rashes or lesions noted and no wounds MDM MDM MDM Narrative Medical decision making narrative: Is [age]-year-old male extensive past medical history of URI symptoms. I will obtain a chest x-ray to rule out pneumonia and a Covid test but he was vaccinated against Covid. Covid test positive. Discussed with the patient referring for monoclonal antibodies. Start him on daily Decadron but watch his blood sugars closely. Repeat exam patient is doing well at 10:03 PM. He is comfortable being discharged home. Lab Data Attestation: I reviewed the patient's lab results. Lab results narrative: Rapid Covid antigen positive. Radiography Chest X-Ray - ED: 1 View, Read by ED Physician, Heart, Lungs, Mediastinum, Bony Structures, No Acute Disease and Chronic Changes Diagnostic Testing: Clinical Impression(s) from Imaging Studies Chest X-Ray 07/02/21 21:26 IMPRESSION: No radiographic evidence of acute cardiopulmonary disease. at 2151 Reported and signed by: Nikita Palacios MD Electronically Signed: Nikita Palacios MD at 21:49 EST Tel , Service support , Chest x-ray portable, 1 view interpreted myself showed no acute abnormality. No infiltrate. Normal cardiac silhouette. Prior CABG. Allergies also reviewed the film and agrees. Discharge Plan Triage Chief Complaint: General Illness ED Provider: Hao Logan Dx/Rx/DC Orders Clinical Impression: Diabetes, History of coronary artery disease, COVID-19 Instructions: Human Coronaviruses Prescriptions: New dexamethasone [Decadron] 6 mg tablet 6 mg PO DAILY 7 Days Qty: 7 RF: 0 No Action lisinopril 20 mg tablet 20 mg PO DAILY RF: 0 prazosin 1 mg capsule 3 mg PO QHS RF: 0 melatonin 3 mg capsule 9 mg PO HS PRN (Reason: Insomnia) RF: 0 albuterol sulfate [Ventolin HFA] 90 mcg/actuation HFA aerosol inhaler 2 puff INHALATION Q6H PRN (Reason: Shortness Of Breath) RF: 0 carvedilol 6.25 mg tablet 6.25 mg PO BID RF: 0 multivitamin Tablet 1 tab PO DAILY RF: 0 metformin 1,000 mg tablet,ER mil.retention 24 hr 1,000 mg PO BID RF: 0 coenzyme Q10 [Co Q-10] 200 mg capsule 200 mg PO DAILY RF: 0 budesonide-formoterol 160-4.5 mcg/actuation HFA aerosol inhaler 1 puff INHALATION BID RF: 0 sertraline 100 mg tablet 200 mg PO DAILY RF: 0 aspirin 81 mg tablet,chewable 81 mg PO DAILY Qty: 30 RF: 11 (DME) insulin syringe-needle U-100 1 mL 31 gauge x 5/16 syringe See Rx Instructions ml .ROUTE .MEDSUPPLY Qty: 10 RF: 0 sildenafil 100 mg tablet 100 mg PO DAILY PRN (Reason: Agitation) RF: 0 hydroxyzine pamoate 25 mg capsule 25 mg PO TID PRN (Reason: Agitation) RF: 0 cetirizine 10 mg tablet 10 mg PO DAILY RF: 0 nitroglycerin 0.4 mg tablet, sublingual 0.4 mg sublingual Q5-15M PRN (Reason: Cardiac/Chest Pain) Qty: 60 RF: 1 cholecalciferol (vitamin D3) 50 mcg (2,000 unit) capsule 50 mcg PO DAILY RF: 0 Trulicity 0.75 mg/0.5 mL pen injector 0.75 mg subcut QWEEK Qty: 2 RF: 1 atorvastatin 40 tablet 40 mg PO QHS RF: 0 amlodipine 10 tablet 10 mg PO DAILY RF: 0 insulin NPH and regular human 100 UNITS/ML suspension 40 units subcut BID RF: 0 pantoprazole 40 tablet 40 mg PO DAILY RF: 0 Other Ambulatory Orders: COVID Outpatient Monoclonal Antibody Referral (Routine) Timeframe: 1 Day Facility: [facility] - Location: [facility] Ordered By: Dr. Hao Logan Primary Care Provider: Corinne Vitale Referrals: Corinne Vitale MD [Primary Care Provider] - 1 Week if not improving Activity Restrictions/Additional Instructions: Plenty of fluids and rest. Tylenol for fever or body aches. Watch your blood sugars closely. Decadron which is a steroid daily to decrease inflammation in your lungs. You are referred to the [facility] monoclonal antibody therapy center. They should contact you on Saturday to discuss with you options about having that infusion or not. Disposition Disposition: Home, Self Care
--- NOTE | 2021-07-02 21:26 | RAD_ITS ---
EXAM: XR CHEST, 1 VIEW : 1965 CLINICAL INDICATION: cough TECHNIQUE: Frontal view of the chest. This report was created using [employer] report generation technology. COMPARISON: 10/08/2019 FINDINGS: LUNGS AND PLEURAL SPACES: Unremarkable. No consolidation or edema. No pneumothorax. No effusion. HEART: Unremarkable. Cardiac silhouette not enlarged. MEDIASTINUM: Central airways and mediastinal contour are unremarkable. BONES/JOINTS: Unremarkable. SOFT TISSUES: Unremarkable. RAD/Chest 1 View (Portable) IMPRESSION: No radiographic evidence of acute cardiopulmonary disease. at 2151 Reported and signed by: Nikita Palacios MD Electronically Signed: Nikita Palacios MD at 21:49 EST Tel , Service support ,
[2021-07-02] MEDS: dexAMETHasone 2 MG TABLET 6 MG PO (22:07)
== END 2021-07-02 22:15 | disposition home or self-care (01) ==
LOC: ED 21:36
PROVIDERS: Emergency Provider Emergency Medicine; PCP Internal Medicine
DX: U07.1 COVID-19 (principal); E66.9 Obesity, unspecified; Z68.31 Body mass index [BMI] 31.0-31.9, adult; I10 Essential (primary) hypertension; E78.5 Hyperlipidemia, unspecified; F32.A Depression, unspecified; I25.10 Atherosclerotic heart disease of native coronary artery without angina pectoris; E11.40 Type 2 diabetes mellitus with diabetic neuropathy, unspecified; I25.2 Old myocardial infarction; J44.9 Chronic obstructive pulmonary disease, unspecified; K21.9 Gastro-esophageal reflux disease without esophagitis; F43.10 Post-traumatic stress disorder, unspecified; G43.909 Migraine, unspecified, not intractable, without status migrainosus; G47.33 Obstructive sleep apnea (adult) (pediatric); G56.00 Carpal tunnel syndrome, unspecified upper limb; Z86.73 Personal history of transient ischemic attack (TIA), and cerebral infarction without residual deficits; Z95.1 Presence of aortocoronary bypass graft; Z79.4 Long term (current) use of insulin; Z79.82 Long term (current) use of aspirin; Z79.899 Other long term (current) drug therapy; F17.210 Nicotine dependence, cigarettes, uncomplicated
CPT/HCPCS: 71045; 87426; 99283

== ENCOUNTER 2021-07-03 17:00 | Outpatient (CLI) | payer OTHER, SELFPAY ==
[2019-10-09 13:46] VITALS: BMI 32.3
[2021-07-03 17:18] VITALS: BP 128/65; PULSE 74; RESP 16; TEMP 36.8; O2SAT 97; BMI 31.4
[2021-07-03] MEDS: 0.9% Saline Lock 10 ML Syringe IV (17:25)
[2021-07-03 18:43] VITALS: BP 122/69; PULSE 72; RESP 16; TEMP 37.2; O2SAT 98
[2021-07-03 19:40] VITALS: BP 130/70; PULSE 72; RESP 16; TEMP 37.2; O2SAT 99
== END 2021-07-03 19:48 | disposition home or self-care (01) ==
LOC: MS3OUT 17:00 → MS3 17:01
PROVIDERS: PCP Internal Medicine; Referring Provider Nurse Practitioner Adult Health; Visit Provider Nurse Practitioner Adult Health
DX: Z23 Encounter for immunization (principal); U07.1 COVID-19
CPT/HCPCS: J7050; M0245; Q0245; A4216

== ENCOUNTER 2022-03-26 17:11 | Emergency (ER) | payer OTHER, SELFPAY ==
[2021-11-21 15:27] VITALS: BMI 32.3
[2022-03-26 17:12] VITALS: BP 159/87; PULSE 83; RESP 18; TEMP 36.1; O2SAT 95; BMI 32.6
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
[2022-03-26] MEDS: HYDROcodone Bitartrate/Apap 5/325 Tablet PO (19:08)
--- NOTE | 2022-03-26 19:10 | RAD_ITS ---
STUDY: LEFT RIB X-RAY SERIES WITH A PA CHEST X-RAY OF 1906 HOURS ON 03/26/2022 REASON FOR EXAM: 57-year-old male with left chest pain. TECHNIQUE - RIBS: 4 view(s) of the left ribs and one view of the chest.. COMPARISON: None. FINDINGS - RIBS: There is a displaced fracture of left lateral fifth rib. There is no identification of any other rib fractures. There is no evidence of associated osseous lytic, sclerotic, or mass lesions. FINDINGS - CHEST: There is residue of a previous sternal thoracotomy. No pneumothorax. Small left hemothorax. There is minimal atelectasis in the mid left lung. There is no evidence of infiltrates or pulmonary mass lesions. There is a calcified granuloma in the mid right lung. RAD/Ribs Uni Min 3V w/PA Chest IMPRESSION: 1. Displaced fracture of the left lateral fifth rib. 2. Small left hemothorax. 3. No identification of other left rib abnormalities. 4. Minimal atelectasis in the mid left lung. 5. No other active cardiopulmonary disease. 6. Previous sternal thoracotomy. Electronically Signed: Jay John MD at 20:46 EDT ,
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
--- NOTE | 2022-03-26 21:21 | NURSING ---
CALLED PHYSICIANS AT 2119 ETA 2-3 HRS. WILL CALL BACK IF ABLE TO OUTSOURCE.
[2022-03-26 21:46] VITALS: RESP 18
[2022-03-26 23:00] VITALS: BP 128/72
[2022-03-26] MEDS: Morphine 4 MG/ML Syringe IV (23:49)
[2022-03-26] MEDS: Ondansetron 4 MG/2 ML Vial IV (23:49)
--- NOTE | 2022-03-27 | ED.RN ---
REPORT CALLED TO NEREIDA CORNEJO AT [facility].
== END 2022-03-27 00:01 | disposition short-term general hospital (02) ==
PROVIDERS: Emergency Provider Student in an Organized Health Care Education/Training Program; PCP Internal Medicine; Visit Provider Student in an Organized Health Care Education/Training Program
DX: S22.32XA Fracture of one rib, left side, initial encounter for closed fracture (principal); J44.9 Chronic obstructive pulmonary disease, unspecified; E11.40 Type 2 diabetes mellitus with diabetic neuropathy, unspecified; Z79.4 Long term (current) use of insulin; F41.9 Anxiety disorder, unspecified; F32.A Depression, unspecified; I25.10 Atherosclerotic heart disease of native coronary artery without angina pectoris; K21.9 Gastro-esophageal reflux disease without esophagitis; I25.2 Old myocardial infarction; E78.5 Hyperlipidemia, unspecified; F43.10 Post-traumatic stress disorder, unspecified; E66.9 Obesity, unspecified; Z86.73 Personal history of transient ischemic attack (TIA), and cerebral infarction without residual deficits; G47.33 Obstructive sleep apnea (adult) (pediatric); V29.9XXA Motorcycle rider (driver) (passenger) injured in unspecified traffic accident, initial encounter; Z79.82 Long term (current) use of aspirin; Z79.899 Other long term (current) drug therapy; Z95.1 Presence of aortocoronary bypass graft; F17.210 Nicotine dependence, cigarettes, uncomplicated; S27.1XXA Traumatic hemothorax, initial encounter; S43.102A Unspecified dislocation of left acromioclavicular joint, initial encounter
CPT/HCPCS: 71101; 73000; 96374; 96375; 99285; A4216; J2405

== ENCOUNTER → 2022-05-21 | Outpatient (CLI) | payer OTHER, SELFPAY ==
[2021-11-21 15:27] VITALS: BMI 32.3
[2022-05-21 12:28] LABS: Absolute Lymphocyte Count 1.55 X10^3/uL (0.83-4.51); Absolute Neutrophil Count 4.2 X10^3/uL (2.0-7.7); Basophil# 0.05 X10^3/uL; Basophil% 0.7 % (0-1); Eosinophil# 0.25 X10^3/uL; Eosinophils% 3.7 % (0-5); Hemoglobin 14.4 g/dL (13.0-16.5); Lymphocyte # 1.55 X10^3/ul (0.83-4.51); Lymphocyte % 23.2 % (19-41); Mean Corp Hgb Conc 32.7 g/dL (32-36); Mean Corpuscular Hgb 29.6 pg (27.0-32.0); Mean Corpuscular Volume 90.3 fL (80-94); Mean Platelet Vol. 9.3 fl (6.2-12.0); Monocyte# 0.56 X10^3/uL; Monocyte% 8.4 % (0-10); NRBC Flagged by Analyzer 0 % (0-5); Neutrophil # 4.22 X10^3/uL (2.7-7.7); Neutrophil % 63.4 % (47-70); Platelet Count 141 K/mm3 (150-450); RBC Distribution Width CV 14.9 % (11.6-14.6); RBC Distribution Width SD 49.2 fl (35.1-43.9); Red Blood Count 4.87 M/mm3 (4.6-6.2); White Blood Count 6.7 K/mm3 (4.4-11.0)
[2022-05-21 12:58] LABS: Hemoglobin A1c 6.6 % (3.8-5.6)
[2022-05-21 12:59] LABS: AST(SGOT) 16 U/L (15-37); Alanine Aminotransfer ALT/SGPT 42 U/L (16-61); Alkaline Phosphatase 107 U/L (45-117); Anion Gap 9 (5-15); BUN 16 mg/dL (7-18); BUN/Creat Ratio 12.8 RATIO (10-20); Calcium,Total 9.5 mg/dL (8.5-10.1); Chloride 105 mmol/L (98-107); Cholesterol 152 mg/dL (200); Creatinine, Serum 1.25 mg/dL (0.70-1.30); EST Glomerular Filtration Rate 63 mL/min (>60); Est Glom Filt Rate - Afr Amer 76 mL/min (>60); Globulin 4.1 g/dL (2.2-4.2); Glucose 234 mg/dL (74-106); High Density Lipoprotein 40 mg/dL; Potassium 4.5 mmol/L (3.5-5.1); Protein, Total 8.1 g/dL (6.4-8.2); Sodium Level 138 mmol/L (136-145); Triglycerides 232 mg/dL; Very Low Density Lipoprotein 46 mg/dL (5-40)
== END | disposition home or self-care (01) ==
LOC: BIMLAB 11:36
PROVIDERS: PCP Internal Medicine; Referring Provider Internal Medicine; Visit Provider Internal Medicine
DX: E11.9 Type 2 diabetes mellitus without complications (principal); E78.5 Hyperlipidemia, unspecified
CPT/HCPCS: 36415; 80053; 80061; 83036; 85025

== ENCOUNTER 2022-06-12 14:51 | Emergency (ER) | payer OTHER, SELFPAY ==
[2021-11-21 15:27] VITALS: BMI 32.3
[2022-06-12 14:52] VITALS: BP 142/94; PULSE 77; RESP 14; TEMP 36.7; O2SAT 97; BMI 31.4
--- NOTE | 2022-06-12 15:58 | EDS_ITS ---
HPI History of Present Illness Chief Complaint: Nausea/Vomiting/Diarrhea Informant: patient Narrative Narrative: Patient presents with nausea vomiting diarrhea and feeling dehydrated. He states he has had some diarrhea off and on for about 3 weeks. Its never been really watery but is gotten soft. Then it gets more firm. No recent antibiotics. No significant odor. He states it was really mild but the last few days he has had more diarrhea and then has developed nausea and vomiting. He has been trying to drink water but is just not keeping it down today which is why he came in. He denies fevers. He denies abdominal pain. No prior abdominal surgeries. He did have some cough earlier past week but that is really gotten better. He states there are about 7 children in his house and everybody has had the similar symptoms. No known COVID. His primary concern is just control the vomiting and dehydration. No new medications. [facility] Medical History Anxiety and depression Asthma Atherosclerosis of coronary artery of [place] heart without angina pectoris Carpal tunnel syndrome COPD (chronic obstructive pulmonary disease) Essential hypertension Fatigue GERD (gastroesophageal reflux disease) Headache, migraine History of [place] (myocardial infarction) History of stroke Hyperlipidemia Left shoulder pain Neuropathy Obesity AVINASH (obstructive sleep apnea) PTSD (post-traumatic stress disorder) Rib fractures Rotator cuff injury Screening for thyroid disorder Seasonal allergies Shoulder dislocation Type 2 diabetes mellitus without complication Home Medications amlodipine 10 mg tablet 10 mg PO DAILY 10/28/17 [History Last Taken 10/09/19] atorvastatin 40 mg tablet 40 mg PO QHS 10/28/17 [History Last Taken Unknown] insulin human U-100 NPH-regulr 70-30 mix 100 unit/mL subcutaneous susp 40 units subcut BID 10/28/17 [History Last Taken Unknown] pantoprazole 40 mg tablet,delayed release 40 mg PO DAILY 10/28/17 [History Last Taken 10/09/19] albuterol sulfate 90 mcg/actuation aerosol inhaler (Ventolin HFA) 2 puff inhalation Q6H PRN Shortness Of Breath 10/02/19 [History Last Taken Unknown] carvedilol 6.25 mg tablet 6.25 mg PO BID 10/02/19 [History Last Taken 10/09/19] metformin 1,000 mg 24 hr tablet,extended release 1,000 mg PO BID 10/02/19 [History Last Taken 10/08/19] multivitamin 1 tab PO DAILY 10/02/19 [History Last Taken Unknown] budesonide-formoterol HFA 160 mcg-4.5 mcg/actuation aerosol inhaler 1 puff inhalation BID 10/07/19 [History Last Taken Unknown] lisinopril 20 mg tablet 20 mg PO DAILY 10/07/19 [History Last Taken 10/09/19] melatonin 3 mg capsule 9 mg PO HS PRN Insomnia 10/07/19 [History Last Taken Unknown] prazosin 1 mg capsule 3 mg PO QHS 10/07/19 [History Last Taken Unknown] sertraline 100 mg tablet 200 mg PO DAILY 10/07/19 [History Last Taken 10/09/19] aspirin 81 mg chewable tablet 81 mg PO DAILY #30 tabs 10/27/19 [Rx Last Taken U nknown] cetirizine 10 mg tablet 10 mg PO DAILY 07/13/20 [History Last Taken Unknown] hydroxyzine pamoate 25 mg capsule 25 mg PO TID PRN Agitation 07/13/20 [History Last Taken Unknown] insulin syringe-needle U-100 1 mL 31 gauge x 5/16 #10 ea 07/13/20 [History Last Taken Unknown] nitroglycerin 0.4 mg sublingual tablet 0.4 mg sublingual Q5-15M PRN Cardiac/Chest Pain #60 tabs 07/13/20 [Rx Last Taken Unknown] sildenafil 100 mg tablet 100 mg PO DAILY PRN Erectile Dysfunction 07/13/20 [History Last Taken Unknown] cholecalciferol (vitamin D3) 50 mcg (2,000 unit) capsule 50 mcg PO DAILY 01/11/21 [History Last Taken Unknown] empagliflozin 25 mg tablet (Jardiance) 25 mg PO DAILY 07/03/21 [History Last Taken Unknown] cyclobenzaprine 10 mg tablet 10 mg PO TID PRN muscle spasm #90 tabs 04/04/22 [Rx Last Taken Unknown] ondansetron 4 mg disintegrating tablet 4 mg PO Q8H PRN nausea and vomiting #10 tabs 06/12/22 [Rx Last Taken Unknown] Allergy/AdvReac Type Severity Reaction Status Date / Time carrot Allergy Severe throat Verified 06/12/22 14:54 swelling desolving sutures Allergy Mild swelling Uncoded 06/12/22 14:54 Family History Mother Hypertension Diabetes CAD (coronary artery disease) CABG Father Heart disease Valve replacement Hypertension Diabetes Surgical History History of arthroscopic knee surgery History of coronary artery bypass graft History of coronary artery stent placement History of left heart catheterization History of open reduction and internal fixation (ORIF) procedure Social History Smoking Status: Current every day smoker tobacco type: cigarettes alcohol intake: current alcohol intake frequency: a few times a week Alcohol type: beer and hard liquor substance use type: does not use caffeine: Yes Type: coffee Number of servings: 1 what type of physical activity do you participate in: none ROS ROS ED Constitutional Constitutional ED: Denies fever(s) ENT ENT ED: Denies rhinorrhea or sore throat Cardiovascular Cardiovascular: Denies chest pain, palpitations or racing heartbeat Respiratory/Chest Respiratory/Chest: Reports cough; Denies dyspnea or sputum Gastrointestinal Gastrointestinal: Reports diarrhea, nausea and vomiting; Denies abdominal pain or melena Genitourinary Genitourinary ED: Denies dysuria, hematuria or urinary frequency Musculoskeletal Musculoskeletal: Denies arthralgias or myalgias Integumentary Denies rash Neurologic Neurologic: Denies headache(s) Endocrine Endocrinology: Denies polydipsia or polyuria Hematologic/Lymphatic Hematologic/Lymphatic: Denies anemia Allergic/Immunologic Allergic/Immunologic ED: Denies urticaria EXAM Physical Exam Const Vital Signs: 06/12/22 14:52 Temperature 98.1 F Temperature Source Temporal Pulse Rate 77 Respiratory Rate 14 Blood Pressure 142/94 H Blood Pressure Mean 110 Pulse Ox 97 Positive well nourished and well developed General Appearance ED: well developed; Negative for pallor HEENT Reports dry mucous membranes Mouth ED: Yes dry mucous membranes Mouth: dry mucous membranes Eyes General Eye ED: Negative for scleral icterus Neck no lymphadenopathy and no JVD Chest Wall inspection of chest normal Resp normal respiratory effort and clear to auscultation bilaterally Cardio regular rate, regular rhythm and no murmurs GI normal to inspection, nondistended, normoactive bowel sounds and non-tender Auscultation: hyperactive bowel sounds Back/Spine no CVA tenderness Extremity normal to inspection General Extremety ED: Negative for edema General Extremity: Negative for edema Neuro oriented x3 Psych mental status grossly normal Skin no rashes or lesions noted General Skin Exam: Negative for jaundice or pallor MDM MDM MDM Narrative Medical decision making narrative: Patient's COVID is negative. CBC is normal. Electrolytes are normal. He is feeling better after IV fluids and Zofran. He sips some water and feels okay. Not having nausea now. We will get him home with some Zofran. We discussed reasons to return. Lab Data Attestation: I reviewed the patient's lab results. Labs: Laboratory Results - last 24 hr 06/12/22 06/12/22 16:05 16:05 WBC 7.7 RBC 4.52 L Hgb 13.1 Hct 39.9 L MCV 88.3 MCH 29.0 MCHC 32.8 RDW Std Deviation 47.3 H RDW Coeff of [place] 14.7 H Plt Count 159 MPV 8.8 Immature Gran % (Auto) 0.800 Neut % (Auto) 83.3 H Lymph % (Auto) 10.5 L [place] % (Auto) 4.5 Eos % (Auto) 0.8 Baso % (Auto) 0.1 Absolute Neuts (auto) 6.5 Absolute Lymphs (auto) 0.81 L Nucleated RBC % 0 Sodium 137 Potassium 3.7 Chloride 105 Carbon Dioxide 25.0 Anion Gap 7 BUN 15 Creatinine 0.93 Estim Creat Clear Calc 91.09 Est GFR (MDRD) Af Amer 106 Est GFR (MDRD) Non-Af 88 BUN/Creatinine Ratio 16.1 Glucose 90 Calcium 9.1 Discharge Plan Triage Chief Complaint: Nausea/Vomiting/Diarrhea ED Provider: Jeancarlos Diaz Dx/Rx/DC Orders Clinical Impression: Nausea vomiting and diarrhea, Dehydration Instructions: ED Diet Vomiting Diarrhea Prescriptions: New ondansetron 4 mg tablet,disintegrating 4 mg PO Q8H PRN (Reason: nausea and vomiting) Qty: 10 0RF No Action lisinopril 20 mg tablet 20 mg PO DAILY prazosin 1 mg capsule 3 mg PO QHS melatonin 3 mg capsule 9 mg PO HS PRN (Reason: Insomnia) albuterol sulfate [Ventolin HFA] 90 mcg/actuation HFA aerosol inhaler 2 puff INHALATION Q6H PRN (Reason: Shortness Of Breath) carvedilol 6.25 mg tablet 6.25 mg PO BID Rx Instructions: must administer with a meal/food multivitamin Tablet 1 tab PO DAILY metformin 1,000 mg tablet,ER mil.retention 24 hr 1,000 mg PO BID budesonide-formoterol 160-4.5 mcg/actuation HFA aerosol inhaler 1 puff INHALATION BID sertraline 100 mg tablet 200 mg PO DAILY aspirin 81 mg tablet,chewable 81 mg PO DAILY Qty: 30 11RF (DME) insulin syringe-needle U-100 1 mL 31 gauge x 5/16 syringe See Rx Instructions .ROUTE .MEDSUPPLY Qty: 10 Rx Instructions: As directed sildenafil 100 mg tablet 100 mg PO DAILY PRN (Reason: Erectile Dysfunction) Rx Instructions: administer 30 minutes to 4 hours before activity hydroxyzine pamoate 25 mg capsule 25 mg PO TID PRN (Reason: Agitation) cetirizine 10 mg tablet 10 mg PO DAILY nitroglycerin 0.4 mg tablet, sublingual 0.4 mg sublingual Q5-15M PRN (Reason: Cardiac/Chest Pain) Qty: 60 1RF Rx Instructions: until response; do not exceed 3 doses per episode cholecalciferol (vitamin D3) 50 mcg (2,000 unit) capsule 50 mcg PO DAILY cyclobenzaprine 10 mg tablet 10 mg PO TID PRN (Reason: muscle spasm) Qty: 90 2RF atorvastatin 40 tablet 40 mg PO QHS Label Comments: amlodipine 10 tablet 10 mg PO DAILY Label Comments: insulin NPH and regular human 100 UNITS/ML suspension 40 units subcut BID Label Comments: INJECT 40 UNITS SUBCUTANEOUSLY TWICE DAILY pantoprazole 40 tablet 40 mg PO DAILY Label Comments: Jardiance 25 mg tablet 25 mg PO DAILY Primary Care Provider: Corinne Vitale Referrals: Corinne Vitale MD [Primary Care Provider] - 1-2 Days if not improving Disposition Disposition: Home, Self Care
[2022-06-12] MEDS: 0.9% Normal Saline 1,000 ML 1000 ML IV (16:07)
[2022-06-12] MEDS: Ondansetron 4 MG/2 ML Vial IV (16:07)
[2022-06-12 16:19] LABS: Absolute Lymphocyte Count 0.81 X10^3/uL (0.83-4.51); Absolute Neutrophil Count 6.5 X10^3/uL (2.0-7.7); Basophil# 0.01 X10^3/uL; Basophil% 0.1 % (0-1); Eosinophil# 0.06 X10^3/uL; Eosinophils% 0.8 % (0-5); Hematocrit 39.9 % (40-54); Hemoglobin 13.1 g/dL (13.0-16.5); Lymphocyte # 0.81 X10^3/ul (0.83-4.51); Lymphocyte % 10.5 % (19-41); Mean Corp Hgb Conc 32.8 g/dL (32-36); Mean Corpuscular Volume 88.3 fL (80-94); Mean Platelet Vol. 8.8 fl (6.2-12.0); Monocyte# 0.35 X10^3/uL; Monocyte% 4.5 % (0-10); NRBC Flagged by Analyzer 0 % (0-5); Neutrophil # 6.45 X10^3/uL (2.7-7.7); Neutrophil % 83.3 % (47-70); Platelet Count 159 K/mm3 (150-450); RBC Distribution Width CV 14.7 % (11.6-14.6); RBC Distribution Width SD 47.3 fl (35.1-43.9); Red Blood Count 4.52 M/mm3 (4.6-6.2); White Blood Count 7.7 K/mm3 (4.4-11.0)
[2022-06-12 16:27] LABS: Anion Gap 7 (5-15); BUN 15 mg/dL (7-18); BUN/Creat Ratio 16.1 RATIO (10-20); Calcium,Total 9.1 mg/dL (8.5-10.1); Chloride 105 mmol/L (98-107); Creatinine, Serum 0.93 mg/dL (0.70-1.30); EST Glomerular Filtration Rate 88 mL/min (>60); Est Glom Filt Rate - Afr Amer 106 mL/min (>60); Estimated Creatinine Clearance 91.09 ml/min; Glucose 90 mg/dL (74-106); Potassium 3.7 mmol/L (3.5-5.1); Sodium Level 137 mmol/L (136-145)
[2022-06-12 17:53] VITALS: BP 138/92; PULSE 82; RESP 17; O2SAT 98
== END 2022-06-12 17:54 | disposition home or self-care (01) ==
PROVIDERS: Emergency Provider Emergency Medicine; PCP Internal Medicine; Visit Provider Emergency Medicine
DX: E86.0 Dehydration (principal); J44.9 Chronic obstructive pulmonary disease, unspecified; E11.40 Type 2 diabetes mellitus with diabetic neuropathy, unspecified; R19.7 Diarrhea, unspecified; F17.210 Nicotine dependence, cigarettes, uncomplicated; I10 Essential (primary) hypertension; E78.5 Hyperlipidemia, unspecified; I25.10 Atherosclerotic heart disease of native coronary artery without angina pectoris; R11.2 Nausea with vomiting, unspecified; Z20.822 Contact with and (suspected) exposure to COVID-19
CPT/HCPCS: 80048; 85025; 87811; 96361; 96374; 99283; J7030; A4216; J2405